=== PATIENT | female | born 1965 | race Caucasian/White ===

== ENCOUNTER 2018-02-15 22:59 | Emergency (ER) | payer BC, SELFPAY ==
[2018-02-15 23:02] VITALS: BP 176/79; PULSE 89; RESP 18; TEMP 36.6; O2SAT 97
--- NOTE | 2018-02-15 23:36 | W.ED.GENAD ---
Discharge Plan Discharge Details Chief Complaint: SOB Clinical Impression: Chest tightness or pressure, Dyspnea, unspecified Reason For Visit: SOB Primary Care Provider: Christa Paniagua ED Provider: Gato Leos Disposition Patient Disposition: HOME Condition: Good Home Meds and New Rx's Prescriptions: Continue multivitamin [Daily Vitamin] 1 EACH tablet 1 ea PO DAILY RF: 0 sumatriptan succinate [Imitrex] 100 MG tablet 100 mg PO RF: 0 omeprazole 20 MG capsule,delayed release(DR/EC) 40 mg PO DAILY RF: 0 estradiol [Estrace] 0.5 MG tablet 0.5 mg PO DAILY Qty: 30 RF: 9 acetaminophen 500 MG tablet 1,000 mg PO PRN PRNRF: 0 ibuprofen [Advil] 200 MG tablet 400 mg PO PRN PRNRF: 0 Discharge Instructions Instructions: Chest Pain (ED), Dyspnea (ED) Additional Instructions: Your EKG, chest x-ray and labs were normal tonight. You should follow up with PCP for outpatient stress testing to complete work up for chest pain. Return to ED for worsening pain, increasing shortness of breath, fever, other concerns. Referrals: Christa Paniagua [Primary Care Provider] - Medical Decision Making MDM Narrative Medical decision making narrative: Patient here with 4 days of intermittent chest pressure and shortness of breath. Seems very atypical for ACS or PE. Not dissection, esophageal rupture, PTX. Possibly GERD or anxiety. Will get EKG, CXR, ACS labs and d-dimer for initial evaluation. Will give aspirin in case ACS. Has mild pressure now and will try GI cocktail to see if helps. Patient is feeling better. EKG, CXR and labs are fine. D-dimer is negative. First troponin is negative. HEART score is 2, so repeat troponin and if negative home to follow up with PCP for outpatient stress testing. Discussed with patient. 3:30 AM - patient's second troponin is negative. She can be discharged home to follow up with PCP and get outpatient stress testing. Return to ED for worsening pain, increased shortness of breath, fever, other concerns. Lab Data Lab results reviewed: Yes I reviewed the patient's lab results. Lab results narrative: Unremarkable labs. D-dimer and troponin negative. ECG Data Attestation: I personally reviewed and interpreted this ECG (s) as follows: Prior ECG tracings: not available for review Interpretation: Normal EKG with sinus rhythm at 74. Normal axis and intervals and ST segments. HPI - General Adult General Mode of arrival: ambulatory. Date/Time Provider Initiated Documentation: 02/15/18 23:10. Limitations to Documentation: no limitations. Information obtained by: patient. HPI Narrative-FOR DICTATION ONLY HPI Narrative: Patient presents to ED with complaint of shortness of breath and chest pressure that has been occurring randomly throughout the day for the last 4 days. Sometimes she thinks it is associated with food/drinking. Does not seem to be related to activity. Has no radiation of pain. No lightheadedness, dizziness, sweating, nausea at all. She has had no fever or cough. She has noticed some left leg discomfort. She is on estrogen replacement. She does not smoke or have other cardiac risk factors. She has not had this before. She took Ativan with some relief thinking it was anxiety. She has history of reflux as well and has been feeling bloated and gassy. She had recurrence again tonight and decided to come in. She has minimal pressure at this time. Related Data Home Medications Medication Instructions Recorded Confirmed multivitamin [Daily Vitamin] 1 ea PO DAILY 10/19/14 02/15/18 omeprazole 40 mg PO DAILY tab-cap 10/19/14 02/15/18 sumatriptan succinate [Imitrex] 100 mg PO 10/19/14 acetaminophen 1,000 mg PO PRN PRN 03/20/17 02/15/18 ibuprofen [Advil] 400 mg PO PRN PRN 03/20/17 02/15/18 Allergies Allergy/AdvReac Type Severity Reaction Status Date / Time Penicillins Allergy Unverified 02/15/18 23:02 sulfamethoxazole AdvReac Intermediate RAsh Unverified 02/15/18 23:02 [From Bactrim] trimethoprim [From Bactrim] AdvReac Intermediate RAsh Unverified 02/15/18 23:02 lactose AdvReac Unverified 02/15/18 23:02 steroid cream AdvReac RAsh Uncoded 02/15/18 23:02 General Stated Complaint: SOB INGE: 4 Review of Systems Constitutional Denies chills, Denies fever(s), Denies headache(s), Denies malaise, Reports poor appetite and Denies weakness Eyes Patient Denies change in vision, denies and Denies eye pain ENT Denies otalgia, Denies headache(s), Denies nasal congestion, Denies nasal discharge and Denies sore throat Cardiovascular Reports chest pain, Denies rapid heart rate, Denies pedal edema, Denies edema, Denies leg edema, Denies lightheadedness, Denies radiating jaw, neck or arm pain, Denies palpitations, Reports dyspnea and Denies dyspnea on exertion Respiratory Denies cough, Denies pain on inspiration, Denies pain with cough, Reports dyspnea and Denies dyspnea on exertion Gastrointestinal Denies abdominal pain, Reports bloating, Denies diarrhea, Denies nausea and Denies vomiting Genitourinary Denies hematuria, Denies urinary frequency and Denies dysuria Musculoskeletal Denies back pain, Denies myalgias, Denies arthralgias, Denies numbness and Reports other (left leg discomfort) Integumentary/Breasts Denies erythema and Denies rash Neurologic Denies headache(s), Denies numbness, Denies paresthesias and Denies weakness Endocrine Denies palpitations [facility] Medical History GERD (gastroesophageal reflux disease) (Chronic) Social History Smoking/Tobacco Use Status: Former Tobacco Use Surgical History H/O hysterectomy with oophorectomy (Inactive) S/P cholecystectomy (Inactive) Exam Const General: cooperative, healthy appearing and no acute distress Nutritional Appearance: obese Orientation: alert and oriented x3 HENWA Head: normocephalic and atraumatic Neck Neck: supple Chest Chest: normal palpation of entire chest wall Resp Effort & Inspection: normal respiratory effort Auscultation: clear to auscultation bilaterally Cardio Rate: regular rate Rhythm: regular rhythm Heart Sounds: S1 normal and S2 normal GI Palpation: soft, no guarding and nontender Skin Rashes: no rashes Neuro General: alert, oriented x3, moves all extremities, no focal motor deficits and CN's II-XI intact bilaterally Extrem General: normal to inspection, full ROM, no pedal edema and no calf tenderness Course Vital Signs Temperature 97.9 F 02/15/18 23:02 Pulse 89 02/15/18 23:02 Respiratory Rate 18 02/15/18 23:02 Blood Pressure 176/79 H 02/15/18 23:02 Pulse Oximetry 97 02/15/18 23:02 Temperature 97.9 F 02/15/18 23:02 Pulse 89 02/15/18 23:02 Respiratory Rate 18 02/15/18 23:02 Blood Pressure 176/79 H 02/15/18 23:02 Pulse Oximetry 97 02/15/18 23:02
--- NOTE | 2018-02-15 23:40 | ED.GENADUL_ITS ---
Discharge Plan Discharge Details Chief Complaint: SOB Clinical Impression: Chest tightness or pressure, Dyspnea, unspecified Reason For Visit: SOB Primary Care Provider: Christa Paniagua ED Provider: Gato Leos Disposition Patient Disposition: HOME Condition: Good Home Meds and New Rx's Prescriptions: Continue multivitamin [Daily Vitamin] 1 EACH tablet 1 ea PO DAILY RF: 0 sumatriptan succinate [Imitrex] 100 MG tablet 100 mg PO RF: 0 omeprazole 20 MG capsule,delayed release(DR/EC) 40 mg PO DAILY RF: 0 estradiol [Estrace] 0.5 MG tablet 0.5 mg PO DAILY Qty: 30 RF: 9 acetaminophen 500 MG tablet 1,000 mg PO PRN PRNRF: 0 ibuprofen [Advil] 200 MG tablet 400 mg PO PRN PRNRF: 0 Discharge Instructions Instructions: Chest Pain (ED), Dyspnea (ED) Additional Instructions: Your EKG, chest x-ray and labs were normal tonight. You should follow up with PCP for outpatient stress testing to complete work up for chest pain. Return to ED for worsening pain, increasing shortness of breath, fever, other concerns. Referrals: Christa Paniagua [Primary Care Provider] - Medical Decision Making MDM Narrative Medical decision making narrative: Patient here with 4 days of intermittent chest pressure and shortness of breath. Seems very atypical for ACS or PE. Not dissection, esophageal rupture, PTX. Possibly GERD or anxiety. Will get EKG, CXR, ACS labs and d-dimer for initial evaluation. Will give aspirin in case ACS. Has mild pressure now and will try GI cocktail to see if helps. Patient is feeling better. EKG, CXR and labs are fine. D-dimer is negative. First troponin is negative. HEART score is 2, so repeat troponin and if negative home to follow up with PCP for outpatient stress testing. Discussed with patient. 3:30 AM - patient's second troponin is negative. She can be discharged home to follow up with PCP and get outpatient stress testing. Return to ED for worsening pain, increased shortness of breath, fever, other concerns. Lab Data Lab results reviewed: Yes I reviewed the patient's lab results. Lab results narrative: Unremarkable labs. D-dimer and troponin negative. ECG Data Attestation: I personally reviewed and interpreted this ECG (s) as follows: Prior ECG tracings: not available for review Interpretation: Normal EKG with sinus rhythm at 74. Normal axis and intervals and ST segments. HPI - General Adult General Mode of arrival: ambulatory . Date/Time Provider Initiated Documentation: 02/15/18 23:10 . Limitations to Documentation: no limitations . Information obtained by: patient . HPI Narrative-FOR DICTATION ONLY HPI Narrative: Patient presents to ED with complaint of shortness of breath and chest pressure that has been occurring randomly throughout the day for the last 4 days. Sometimes she thinks it is associated with food/drinking. Does not seem to be related to activity. Has no radiation of pain. No lightheadedness, dizziness, sweating, nausea at all. She has had no fever or cough. She has noticed some left leg discomfort. She is on estrogen replacement. She does not smoke or have other cardiac risk factors. She has not had this before. She took Ativan with some relief thinking it was anxiety. She has history of reflux as well and has been feeling bloated and gassy. She had recurrence again tonight and decided to come in. She has minimal pressure at this time. Related Data Home Medications Medication Instructions Recorded Confirmed multivitamin [Daily Vitamin] 1 ea PO DAILY 10/19/14 02/15/18 omeprazole 40 mg PO DAILY tab-cap 10/19/14 02/15/18 sumatriptan succinate [Imitrex] 100 mg PO 10/19/14 acetaminophen 1,000 mg PO PRN PRN 03/20/17 02/15/18 ibuprofen [Advil] 400 mg PO PRN PRN 03/20/17 02/15/18 Allergies Allergy/AdvReac Type Severity Reaction Status Date / Time Penicillins Allergy Unverified 02/15/18 23:02 sulfamethoxazole AdvReac Intermediate RAsh Unverified 02/15/18 23:02 [From Bactrim] trimethoprim [From Bactrim] AdvReac Intermediate RAsh Unverified 02/15/18 23:02 lactose AdvReac Unverified 02/15/18 23:02 steroid cream AdvReac RAsh Uncoded 02/15/18 23:02 General Stated Complaint: SOB INGE: 4 Review of Systems Constitutional Denies chills, Denies fever(s), Denies headache(s), Denies malaise, Reports poor appetite and Denies weakness Eyes Patient Denies change in vision, denies and Denies eye pain ENT Denies otalgia, Denies headache(s), Denies nasal congestion, Denies nasal discharge and Denies sore throat Cardiovascular Reports chest pain, Denies rapid heart rate, Denies pedal edema, Denies edema, Denies leg edema, Denies lightheadedness, Denies radiating jaw, neck or arm pain , Denies palpitations, Reports dyspnea and Denies dyspnea on exertion Respiratory Denies cough, Denies pain on inspiration, Denies pain with cough, Reports dyspnea and Denies dyspnea on exertion Gastrointestinal Denies abdominal pain, Reports bloating, Denies diarrhea, Denies nausea and Denies vomiting Genitourinary Denies hematuria, Denies urinary frequency and Denies dysuria Musculoskeletal Denies back pain, Denies myalgias, Denies arthralgias, Denies numbness and Reports other (left leg discomfort) Integumentary/Breasts Denies erythema and Denies rash Neurologic Denies headache(s), Denies numbness, Denies paresthesias and Denies weakness Endocrine Denies palpitations [facility] Medical History GERD (gastroesophageal reflux disease) (Chronic) Social History Smoking/Tobacco Use Status: Former Tobacco Use Surgical History H/O hysterectomy with oophorectomy (Inactive) S/P cholecystectomy (Inactive) Exam Const General: cooperative, healthy appearing and no acute distress Nutritional Appearance: obese Orientation: alert and oriented x3 HENUT Head: normocephalic and atraumatic Neck Neck: supple Chest Chest: normal palpation of entire chest wall Resp Effort & Inspection: normal respiratory effort Auscultation: clear to auscultation bilaterally Cardio Rate: regular rate Rhythm: regular rhythm Heart Sounds: S1 normal and S2 normal GI Palpation: soft, no guarding and nontender Skin Rashes: no rashes Neuro General: alert, oriented x3, moves all extremities, no focal motor deficits and CN's II-XI intact bilaterally Extrem General: normal to inspection, full ROM, no pedal edema and no calf tenderness Course Vital Signs Temperature 97.9 F 02/15/18 23:02 Pulse 89 02/15/18 23:02 Respiratory Rate 18 02/15/18 23:02 Blood Pressure 176/79 H 02/15/18 23:02 Pulse Oximetry 97 02/15/18 23:02 Temperature 97.9 F 02/15/18 23:02 Pulse 89 02/15/18 23:02 Respiratory Rate 18 02/15/18 23:02 Blood Pressure 176/79 H 02/15/18 23:02 Pulse Oximetry 97 02/15/18 23:02
[2018-02-15] MEDS: Aspirin 81 MG CHEW 324 MG CH (23:42)
[2018-02-15 23:43] LABS: Abs Immature Grans 0.01 k/cumm (0.0-0.09); Absolute Basophil Count 0.04 k/cumm (0.0-0.2); Absolute Eosinophil Count 0.13 k/cumm (0.0-0.7); Absolute Monocyte Count 0.53 k/cumm (0.11-0.7); Absolute Neutrophil Count 4.01 k/cumm (1.2-6.7); Basophils % 0.5; Eosinophils % 1.8; HCT 40.1 % (36.0-46.0); HGB 13.4 g/dL (12.0-15.5); Immature Grans % 0.1; Lymphocytes % 35.5; Mean Corp. HGB Concentration 33.4 g/dL (32.0-36.0); Mean Corpuscular Hemoglobin 30.5 pg (27.0-33.0); Mean Corpuscular Volume 91.1 fL (80-95); Mean Platelet Volume 9.2 fL (8.0-11.0); Monocytes % 7.2; Neutrophils % 54.9; Platelet Count 255 x1000/uL (130-400); RBC Distribution Width 13.6 % (11.7-14.6); White Blood Cell Count 7.32 k/cumm (4.4-10.8)
--- NOTE | 2018-02-15 23:55 | DI.RAD_ITS ---
SYMPTOM/DIAGNOSIS: CHEST PRESSURE PA AND LATERAL CHEST: 02/15 The heart is normal in size. The lungs are clear. The mediastinal structures and pleura appear intact. CONCLUSION: Normal chest.
[2018-02-15 23:59] VITALS: PULSE 69; O2SAT 96
[2018-02-16] VITALS (37 sets, daily range): BP systolic 102–135; BP diastolic 55–81; PULSE 62–79; O2SAT 93–99
--- NOTE | 2018-02-16 | DI.VRAD_ITS ---
EXAM: XR Chest, 2 Views CLINICAL HISTORY: 52 years old, female; Signs and symptoms; Shortness of breath; Patient HX: SOB for 3 days TECHNIQUE: Frontal and lateral views of the chest. COMPARISON: CR - CHEST 2 VIEWS PA,LAT 06/22/2012 9:55 AM FINDINGS: Lungs: Unremarkable. No consolidation. Pleural space: Unremarkable. No pneumothorax. Heart: Unremarkable. No cardiomegaly. Mediastinum: Unremarkable. Bones/joints: Unremarkable. IMPRESSION: Normal chest x-rays. Dictated and Authenticated by: Cb Burton MD. Ordering:RUCHI VILLANUEVA MD
[2018-02-16 00:06] LABS: ALT 21 U/L (12-78); AST 16 U/L (15-37); Albumin 3.4 g/dL (3.4-5.0); Alkaline Phosphatase 57 U/L (46-116); Anion Gap 5.6 mmol/L (3-11); BUN 8 mg/dL (7-18); Bilirubin, Total 0.3 mg/dL (0.2-1.0); CO2 28.4 mmol/L (21.0-32.0); CREATININE 0.73 mg/dL (0.55-1.02); Calcium 8.7 mg/dL (8.5-10.1); Chloride 105 mmol/L (98-107); Glucose 101 mg/dL (70-100); Magnesium 2.1 mg/dL (1.8-2.4); Potassium 3.3 mmol/L (3.5-5.1); Sodium 139 mmol/L (136-145); Total Protein 7.1 g/dL (6.4-8.2)
[2018-02-16 00:07] LABS: Troponin I < 0.02 ng/mL (0.00-0.06)
[2018-02-16] MEDS: Normal Saline Flush 10 ML SYR IVP (00:07)
[2018-02-16 00:16] LABS: D-Dimer 429 ng/mlFEU (<500)
[2018-02-16 03:10] LABS: Troponin I < 0.02 ng/mL (0.00-0.06)
== END 2018-02-16 03:53 | disposition home or self-care (01) ==
LOC: ER 02-16 03:43
PROVIDERS: Emergency Provider Emergency Medicine; PCP Nurse Practitioner Family
DX: R07.89 Other chest pain (principal); R06.00 Dyspnea, unspecified
CPT/HCPCS: 36415; 80053; 93005; 99285; 71046; 83735; 84484; 85025; 85379; 93010

== ENCOUNTER 2018-03-03 08:12 | Outpatient (REF) | payer BC, SELFPAY ==
[2018-03-03 11:37] LABS: Cholesterol 154 mg/dL (50-200); HDL Cholesterol 63 mg/dL (40-60); LDL CHOLESTEROL 80 mg/dL (<100); Triglyceride 94 mg/dL (30-150)
== END 2018-03-03 08:32 ==
LOC: NCHCN 08:12
PROVIDERS: PCP Nurse Practitioner Family; Visit Provider Nurse Practitioner Family
DX: Z00.00 Encounter for general adult medical examination without abnormal findings (principal); Z13.220 Encounter for screening for lipoid disorders
CPT/HCPCS: 80061; 83721

== ENCOUNTER 2018-03-31 00:11 | Outpatient (CLI) | payer BC, SELFPAY ==
--- NOTE | 2018-03-31 10:30 | ETT_ITS ---
*[facility]* *[facility]* [address] [place] [address] Stress Electrocardiography Francisco protocol Date of study: 03/31/2018 *PATIENT PRESENTATION* Height: 157.5cm (62in) Blood Pressure: Weight: 107.3kg (236lb) BSA: 2.23m^2 Ordering physician: Ping Wagoner Impressions: Normal study after maximal exercise. Summary: 1. Stress ECG conclusions: The stress ECG is negative. Long treadmill score: 7. This score predicts a low risk of cardiac events. 2. Stress: The target heart rate was achieved. The heart rate response to stress is normal. There is a normal resting blood pressure with an appropriate response to stress. The patient experienced no chest pain during stress. Exercise capacity is fair (8.4 METS) Indication: RO6.02. History: REASON FOR TESTING: APPROXIMATELY 2 MONTHS AGO PATIENT HAD 4 DAYS OF INTERMITTENT CHEST PAIN AND SHORTNESS OF BREATH. PATIENT WAS SEEN IN THE ED. TROPONINS WERE NEGATIVE. PATIENT DENIED LIGHTHEADEDNESS, DIZZYNESS, SWEATING, AND NAUSEA. PAST MEDICAL HISTORY: GERD, MIGRAINS. 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 Risk factors: Obesity. Cholesterol: 154mg/dl. HDL: 63mg/dl. LDL: 80mg/dl. Triglycerides: 94mg/dl. ALLERGIES: PENICILLINS, SULFAMETHOXAZOLE, TRIMETHOPRIM, LACTOSE, STERIOD CREAM. MEDICATIONS: MULTIVITAMIN 1 DAILY, SUMATRIPTAN SUCCINATE 100 MG , OMPRRAZOLE 40 MG DAILY, ESTRADIOL 0.5 MG DAILY, ACETAMINOPHEN 1000 MG PRN, IBUPROFEN 400 MG PRN. Protocol: Francisco protocol. Baseline ECG: LAST EKG: SINUS RHYTHM-02/15/18 TODAY'S EKG: SINUS RHYTHM. Normal ECG. Stress protocol: + +---+ +---+ !Stage !HR !BP (mmHg) !Sat! + +---+ +---+ !Baseline supine !75 !118/68 (85) !---! + +---+ +---+ !Baseline standing !105!115/64 (81) !97%! + +---+ +---+ !Stage I; 1.7mph, 10degrees; 3 min !122!180/82 (115)!96%! + +---+ +---+ !Stage II; 2.5mph, 12degrees; 3 min!146!182/84 (117)!98%! + +---+ +---+ !Recovery; 1 min !136!162/62 (95) !98%! + +---+ +---+ !Recovery; 3 min !92 !144/68 (93) !---! + +---+ +---+ !Recovery; 6 min !96 !110/70 (83) !---! + +---+ +---+ * Stress results: The target heart rate was achieved. The heart rate response to stress is normal. There is a normal resting blood pressure with an appropriate response to stress. The rate-pressure product for the peak heart rate and blood pressure was 69240sw Hg/min. The patient experienced no chest pain during stress. Exercise capacity is fair (8.4 METS) Stress ECG: EXERCISE TESTING ENDED IN 6 MINUTES 54 SECONDS WITH A MAX HEART RATE OF164 , 98 % OF TARGET. HYPERTENSIVE BLOOD PRESSURE RESPONSE. ECTOPY NONE SEEN. MET'S 8.41. NO REPORTED CHEST PAIN OR PRESSURE. ISCHEMIA: NO ISCHEMIC CHANGES NOTED. FUNCTIONAL CAPACITY: AVERGE CAPACITY. EXERCISE TESTING ENDED IN MINUTES SECONDS DUE TO. MAX HEART RATE WAS % OF TARGET BLOOD PRESSURE RESPONSE The stress ECG is negative. Long treadmill score: 7. This score predicts a low risk of cardiac events. Study data: Cesar Baker MD supervised and was readily available during the procedure. This study was interpreted by [facility]. Study status: Routine. Consent: The risks, benefits, and alternatives to the procedure were explained to the patient and informed consent was obtained. Procedure: Initial setup. A baseline ECG was recorded. Surface ECG leads and manual cuff blood pressure measurements were monitored. Heart sounds: Normal. Lung sounds: Normal. Treadmill exercise testing was performed using the Francisco protocol. Study completion: The patient tolerated the procedure well and was discharged from the lab. Discharge: The patient left the laboratory in stable condition. Birthdate: Patient birthdate: 1965. Sex: Gender: female. Study date: Study date: 03/31/2018. Study time: 10:30 AM. Signature Documentation: The Stress ECG portion of this study was interpreted by Cesar Baker MD. Electronically signed by Cesar Baker 03/31/2018 10:53
== END 2018-03-31 00:31 ==
PROVIDERS: PCP Nurse Practitioner Family; Visit Provider Nurse Practitioner Family
DX: R07.89 Other chest pain (principal); R06.02 Shortness of breath; F17.210 Nicotine dependence, cigarettes, uncomplicated
CPT/HCPCS: 93017

== ENCOUNTER 2018-12-07 10:16 | Outpatient (REF) | payer BC, SELFPAY ==
--- NOTE | 2018-12-07 09:45 | PAPFT_PTH ---
PATIENT: Blanca Miguel LOC: NCN U#:[id number] AGE/SX: 52/F ROOM: RE12/07/[address]: Christa Paniagua : 1965 BED: DIS: 12/07/2018 SPEC #: [id number] RECD: 12/07/18 12:54 STATUS: STEPHANIE REQ #: [id number] GEORGE: 12/07/18 09:[address]: Christa Paniagua DEPT: ON LICENSE OF [facility] Cytology RECD BY: Eden Beltre ENTERED: 12/07/18 12:55 SP TYPE: PAPFT OTHR DR: Ping Wagoner Tissues: 1 - CX/ENDOCX FOR PAP SMEARS Procedures: PAP THIN PREP/UVM Screening HPV DNA PROBE Comments: [id number]
== END 2018-12-07 10:36 ==
LOC: NCHCN 10:16
PROVIDERS: PCP Nurse Practitioner Family; Visit Provider Nurse Practitioner Family
DX: Z00.00 Encounter for general adult medical examination without abnormal findings (principal); Z12.4 Encounter for screening for malignant neoplasm of cervix; Z11.51 Encounter for screening for human papillomavirus (HPV)
CPT/HCPCS: 88142; 87624

== ENCOUNTER 2018-12-14 01:11 | Outpatient (CLI) | payer BC, SELFPAY ==
--- NOTE | 2018-12-14 12:19 | DI.MAMMO_ITS ---
SYMPTOMS/DIAGNOSIS: SCREENING, Z12.39 MAMMOGRAM: Mammograms were interpreted according to the usual protocol including computer analysis with CAD system, tomosynthesis and C view imaging. Comparison is made with exams from 2011 through 2017. The breasts are composed of fatty density tissue, breast density Category A. No suspicious masses or suspicious microcalcifications are seen. There has been no significant change. IMPRESSION: Category I, negative mammogram. Yearly screening mammography is recommended. [facility] ASSESSMENT OF FINDINGS: Negative. Category 1. Patient will receive a letter notifying them of these results. BI-RAD category A. The breasts are almost entirely fatty.
== END 2018-12-14 01:31 ==
PROVIDERS: PCP Nurse Practitioner Family; Visit Provider Nurse Practitioner Family
DX: Z12.31 Encounter for screening mammogram for malignant neoplasm of breast (principal)
CPT/HCPCS: 77063; 77067

== ENCOUNTER 2020-08-30 18:39 | Outpatient (REF) | payer BC, SELFPAY ==
[2020-08-31 13:11] LABS: COVID-19 RT-PCR UVMMC Result Negative (Negative)
== END 2020-08-30 18:40 | disposition home or self-care (01) ==
LOC: NCHCN 18:39
PROVIDERS: PCP Nurse Practitioner Family; Visit Provider Internal Medicine
DX: Z20.822 Contact with and (suspected) exposure to COVID-19 (principal)
CPT/HCPCS: U0003

== ENCOUNTER 2023-07-13 16:03 | Outpatient (REF) | payer OTHER, SELFPAY ==
--- NOTE | 2023-07-13 11:35 | PAPFT_PTH ---
PATIENT: Blanca Miguel LOC: NCN #:[id number] AGE/SX: 57/F ROOM: RE07/13/[address]: YARITZA YUSUF : 1965 BED: DIS: 07/13/2023 SPEC #: [id number] RECD: 07/13/23 18:27 STATUS: STEPHANIE REQ #: [id number] GEORGE: 07/13/23 11:[address]: Yaritza Yusuf DEPT: [facility] Cytology RECD BY: Eden Beltre ENTERED: 07/13/23 18:27 SP TYPE: PAPFT OTHR DR: Ping Wagoner Tissues: 1 - CX/ENDOCX FOR PAP SMEARS Procedures: PAP THIN PREP/UVM Screening HPV DNA PROBE Comments: [id number]
[2023-07-13 16:03] LABS: Abs Immature Grans 0.03 10^3/uL (0.0-0.06); Absolute Basophil Count 0.07 10^3/uL (0.0-0.2); Absolute Eosinophil Count 0.24 10^3/uL (0.0-0.7); Absolute Lymphocyte Count 2.24 10^3/uL (1.2-3.4); Absolute Monocyte Count 0.55 10^3/uL (0.1-0.8); Absolute Neutrophil Count 5.34 10^3/uL (1.2-6.7); Basophils % 0.8; Eosinophils % 2.8; HCT 44.3 % (36.0-46.0); HGB 14.8 g/dL (11.2-15.7); Immature Grans % 0.4; Lymphocytes % 26.4; MCH 31.4 pg (27.0-33.0); MCHC 33.4 % (32.0-36.0); MCV 94 fL (80-95); MPV 9.9 fL (8.0-11.0); Monocytes % 6.5; Neutrophils % 63.1; Platelet Count 281 10^3/uL (130-400); RBC 4.72 10^6/uL (3.93-5.22); RDW 13.5 % (11.7-14.6); RDW-SD 46.6 fL; WBC 8.47 10^3/uL (4.4-10.8)
[2023-07-13 16:32] LABS: ALT 44 U/L (14-59); AST 30 U/L (15-37); Albumin 3.9 g/dL (3.4-5.0); Alkaline Phosphatase 63 U/L (46-116); BUN 17 mg/dL (7-18); CREATININE 0.7 mg/dL (0.55-1.02); Calcium 9.4 mg/dL (8.5-10.1); Calculated LDL 82 mg/dL (<100); Chloride 104 mmol/L (98-107); Cholesterol 166 mg/dL (<200); Estimated GFR 99.57 (mL/min/1.73m2); FREE T4 0.89 ng/dL (0.76-1.46); Glucose 92 mg/dL (74-106); HDL Cholesterol 64 mg/dL (40-60); Potassium 4.2 mmol/L (3.5-5.1); Sodium 141 mmol/L (136-145); TSH 3.49 uIU/mL (0.36-3.74); Total Protein 7.6 g/dL (6.4-8.2); Triglyceride 104 mg/dL (<150)
[2023-07-13 16:38] LABS: Hemoglobin A1C 5.7 % (<5.7)
[2023-07-13 17:35] LABS: Bilirubin, Total 0.4 mg/dL (0.2-1.0)
== END 2023-07-13 16:04 | disposition home or self-care (01) ==
LOC: NCHCN 16:03
PROVIDERS: PCP Nurse Practitioner Family; Visit Provider Nurse Practitioner Family
DX: Z00.00 Encounter for general adult medical examination without abnormal findings (principal); Z12.4 Encounter for screening for malignant neoplasm of cervix; Z11.51 Encounter for screening for human papillomavirus (HPV)
CPT/HCPCS: 80053; 80061; 88142; 83036; 84439; 84443; 85025; 87624

== ENCOUNTER → 2023-09-16 02:03 | Outpatient (CLI) | payer OTHER, SELFPAY ==
--- NOTE | 2023-09-16 15:16 | DI.MAMMO_ITS ---
Exam(s) MAMMO SCREENING EXAM: MAMMO SCREENING Sachin et CLINICAL HISTORY: Z12.31 Encounter for screening mammogram for jas ballardp of breast TECHNIQUE: Bilateral full field digital CC and MLO mammographic images were obtained with 3D tomosyn thesis and utilizing computer aided detection (CAD). COMPARISON: Available for comparison. FINDINGS: Masses/Architectural Distortion: None seen. Microcalcifications: No suspicious pleomorphic-type are seen. Skin Thickening/Nipple Retraction: None. IMPRESSION: 1. No significant interval change with no specific features of malignancy noted. 2. Unless there is more urgent need, screening mammography is recommended, as per [employer] guidelines. BI-RADS Category 1 - Negative Breast Density - Category A - Almost entirely fatty Breast density category C or D implies that the patient has dense breast tissue. Dense breast tissue is very common and is not abnormal but dense breast tissue can make it harder to find cancer on a ma mmogram. Also, dense breast tissue may increase their breast cancer risk. This information about the result of the mammogram report was provided to the patient to raise their awareness. Use this report when you speak with the patient about their risks for breast cancer, which includes their family hist ory. At that time, you may recommend for more screening tests (Ultrasound or MRI) as they might be us eful based on their risk. A negative radiographic report should not delay biopsy if a dominant or clinically suspicious mass is present. Up to ten percent of cancers are not identified on mammography. A negative report may reinforce clinical impression. Adenosis and dense breasts may obscure an underlying neoplasm. False positive reports average 6 to 10%. Patient will receive a letter notifying them of these results.
== END ==
PROVIDERS: PCP Nurse Practitioner Family; Visit Provider Nurse Practitioner Family
DX: Z12.31 Encounter for screening mammogram for malignant neoplasm of breast (principal)
CPT/HCPCS: 77063; 77067